=== PATIENT | female | born 1965 | race Caucasian/White ===

== ENCOUNTER → 2018-05-01 15:26 | Outpatient (CLI) | payer OTHER, SELFPAY ==
--- NOTE | 2018-05-01 15:42 | MRI_ITS ---
STUDY: MRI LEFT ANKLE WITHOUT CONTRAST REASON FOR EXAM: Plantar heel pain for 6 months. TECHNIQUE: Standardized fat and water weighted pulse sequences were obtained in all 3 orthogonal planes. COMPARISON: Radiographs 11/29/2016. FINDINGS: There is mild edema in the plantar heel pad. There is edema in the anterior subcutis adipose space of the distal lower leg. Normal posterior tibialis tendon. Normal flexor digitorum longus tendon. Normal flexor hallucis longus tendon. Normal peroneus longus and brevis tendons. Normal tibialis anterior tendon. Normal extensor hallucis longus tendon. Normal extensor digitorum longus tendons. Normal Achilles tendon and teno-osseous insertion. There is thickening of the central cord of the plantar fascia measuring 0.9 cm with interstitial edema (inversion recovery sagittal images 9-11) consistent with plantar fasciitis. There is mild reactive bone edema in the posterior tuberosity of the calcaneus at the origin of the plantar fascia (inversion recovery sagittal images 11, 12). There is a very small plantar calcaneal enthesophyte. Normal intrinsic muscles of the rearfoot. Normal distal tibiofibular syndesmotic ligamentous complex. Normal lateral ligamentous complex. Normal subtalar ligaments and sinus tarsi. Normal deltoid ligamentous complexes. Normal plantar calcaneonavicular (spring) ligament. There is mild interstitial edema in Lisfranc ligament (series 13 image 13), possibly representing a low-grade sprain. Normal tibiotalar articulation. Normal talar dome. Normal subtalar articulations. Normal talonavicular articulation. Normal calcaneocuboid articulation. Normal navicular-cuneiform articulations. There is an os trigonum. MRI/Lower Ext Joint Only (Routine) IMPRESSION: Plantar fasciitis with mild reactive bone edema in the posterior tuberosity of the calcaneus. Possible low-grade sprain of Lisfranc ligament. Electronically Signed: Reyes Sharp MD at 11:43 EST Tel , Service support ,
== END ==
PROVIDERS: Family Provider Family Medicine Geriatric Medicine; PCP Family Medicine Geriatric Medicine; Referring Provider Podiatrist; Visit Provider Podiatrist
DX: M72.2 Plantar fascial fibromatosis (principal); M84.375A Stress fracture, left foot, initial encounter for fracture
CPT/HCPCS: 73721

== ENCOUNTER → 2018-05-30 14:50 | Outpatient (CLI) | payer OTHER, SELFPAY ==
--- NOTE | 2018-05-30 14:52 | BI_ITS ---
MAMMOGRAPHY - BILATERAL SCREENING REASON FOR EXAM: Female, 52 years old. Routine annual screening examination. PERTINENT HISTORY: Non-contributory. TECHNIQUE: Digital bilateral breast jeny (3D mammographic acquisition) in the CC and MLO projections. 2-D mediolateral oblique (MLO) and craniocaudad (CC) views of both breasts were obtained. CAD: Full Field Digital Mammography with Computer Added Detection was performed. COMPARISON: Comparison is made with prior study dated September 17, 2016 and February 16, 2015. FINDINGS: Breast Composition: The breasts are almost entirely fatty. There are no dominant masses or suspicious calcifications. No other significant abnormalities are identified. There has been no significant change since the prior study. BI/SCREENING MAMM (CAD), BILAT IMPRESSION: Stable bilateral screening mammogram. Yearly follow-up mammogram recommended. (A) ASSESSMENT CATEGORY: BIRADS Category 1: Negative. A letter regarding these results will be sent to the patient by the facility within 30 days. Approximately 10% of breast cancers are not detected by mammography. A normal mammogram should not delay biopsy of a clinically suspicious abnormality. [id number] Electronically Signed: Al Heaton MD at 16:03 EST Tel [phone], Service support ,
--- OUTSIDE RECORDS SUMMARY | 2018-07-25 14:12 | XMS RPT_ITS ---
:1965 Author Organization [facility] Care Team Providers Name Role Michael Kwan Employee Attending Unavailable Ambreen Paulino Attending Unavailable Ambreen Paulino Referring Unavailable Pierre, Brandon Chi Primary Care Unavailable Ammon Gonsales Attending Unavailable Ammon Gonsales Referring Unavailable Pierre, Brandon Chi Primary Care Unavailable PROBLEMS PROBLEMS DATE TYPE CONDITION / CODE ATTENDING STATUS SOURCE 05/08/2018 Unknown M72.2 - Plantar Fascione, Active [place] fascial [facility] fibromatosis [facility] M72.2(ICD-10) Repository PROCEDURES PROCEDURES No Procedure Records FoundRESULTS RESULTS SCREENING MAMM (CAD), Observed: 05/30/2018 Status: F Source: [facility]EF BILAT 2:52 PM [facility] Imaging Services [address] [place] [address] SCREENING MAMM (CAD), BILAT MR#: [id number] Acct: [id number] Name: YENI BANEGAS Rep #: [id number] : 1965 F 52 From: Al Heaton MD PCP: Pierre VINCENT,Brandon Holcomb Status: REG CLI Study: SCREENING MAMM (CAD), BILAT Date of Exam: 05/30/18 Exam# [id number] Ordering Dr: Ammon Gonsales MD MAMMOGRAPHY - BILATERAL SCREENING REASON FOR EXAM: Female, 52 years old. Routine annual screening examination. PERTINENT HISTORY: Non-contributory. TECHNIQUE: Digital bilateral breast jeny (3D mammographic acquisition) in the CC and MLO projections. 2-D mediolateral oblique (MLO) and craniocaudad (CC) views of both breasts were obtained. CAD: Full Field Digital Mammography with Computer Added Detection was performed. COMPARISON: Comparison is made with prior study dated September 17, 2016 and February 16, 2015. FINDINGS: Breast Composition: The breasts are almost entirely fatty. There are no dominant masses or suspicious calcifications. No other significant abnormalities are identified. There has been no significant change since the prior study. BI/SCREENING MAMM (CAD), BILAT IMPRESSION: Stable bilateral screening mammogram. Yearly follow-up mammogram recommended. (A) ASSESSMENT CATEGORY: BIRADS Category 1: Negative. A letter regarding these results will be sent to the patient by the facility within 30 days. Approximately 10% of breast cancers are not detected by mammography. A normal mammogram should not delay biopsy of a clinically suspicious abnormality. [id number] Electronically Signed: Al Heaton MD at 16:03 EST Tel [phone], Service support , CC: Ammon Gonsales MD; Brandon Jay MD Commissioner Of Officials: Signed LOWER EXT JOINT ONLY Observed: 05/01/2018 Status: F Source: [place] (ROUTINE) 3:43 PM [facility] REPOSITORY Imaging Services [address] [place] [id number] Lower Ext Joint Only (Routine) MR#: [id number] Acct: [id number] Name: YENI BANEGAS Rep #: [id number] : 1965 F 52 From: Reyes Sharp MD PCP: Pierre VINCENT,[employer] Status: REG CLI Study: Lower Ext Joint Only (Routine) Date of Exam: 05/01/18 Exam# [id number] Ordering Dr: Ambreen Paulino DPM STUDY: MRI LEFT ANKLE WITHOUT CONTRAST REASON FOR EXAM: Plantar heel pain for 6 months. TECHNIQUE: Standardized fat and water weighted pulse sequences were obtained in all 3 orthogonal planes. COMPARISON: Radiographs 11/29/2016. FINDINGS: There is mild edema in the plantar heel pad. There is edema in the anterior subcutis adipose space of the distal lower leg. Normal posterior tibialis tendon. Normal flexor digitorum longus tendon. Normal flexor hallucis longus tendon. Normal peroneus longus and brevis tendons. Normal tibialis anterior tendon. Normal extensor hallucis longus tendon. Normal extensor digitorum longus tendons. Normal Achilles tendon and teno-osseous insertion. There is thickening of the central cord of the plantar fascia measuring 0.9 cm with interstitial edema (inversion recovery sagittal images 9-11) consistent with plantar fasciitis. There is mild reactive bone edema in the posterior tuberosity of the calcaneus at the origin of the plantar fascia (inversion recovery sagittal images 11, 12). There is a very small plantar calcaneal enthesophyte. Normal intrinsic muscles of the rearfoot. Normal distal tibiofibular syndesmotic ligamentous complex. Normal lateral ligamentous complex. Normal subtalar ligaments and sinus tarsi. Normal deltoid ligamentous complexes. Normal plantar calcaneonavicular (spring) ligament. There is mild interstitial edema in Lisfranc ligament (series 13 image 13), possibly representing a low-grade sprain. Normal tibiotalar articulation. Normal talar dome. Normal subtalar articulations. Normal talonavicular articulation. Normal calcaneocuboid articulation. Normal navicular-cuneiform articulations. There is an os trigonum. MRI/Lower Ext Joint Only (Routine) IMPRESSION: Plantar fasciitis with mild reactive bone edema in the posterior tuberosity of the calcaneus. Possible low-grade sprain of Lisfranc ligament. Electronically Signed: Reyes Sharp MD at 11:43 EST Tel , Service support , CC: Ambreen Paulino DPM; Brandon Jay MD Commissioner Of Officials: Signed CBC W/DIFF, AUTOMATED Collected: 09/24/2017 Status: F Source: JEF 7:42 AM [facility] REPOSITORY TYPE CODE TESTS RESULT OUT OF RANGE REFERENCE UNITS LAB L100.1000 4.4-11.0 K/mm3 Low WBC 4.1 LAB L100.1200 4.2-5.4 M/mm3 Low RBC 4.13 LAB L100.1300 12.0-15.0 g/dl Normal HGB 13.3 LAB L100.1400 37-47 % Normal HCT 40.4 LAB L100.1500 81-99 fL Normal MCV 97.8 LAB L100.1600 27.0-32.0 pg High MCH 32.2 LAB L100.1700 32-36 g/gl Normal MCHC 32.9 LAB L100.1810 11.6-14.6 % Normal RDW CV 11.8 LAB L100.1820 35.1-43.9 fl Normal RDW SD 40.9 LAB L100.1900 150-450 K/mm3 Normal PLT 169 LAB L100.2000 6.2-12.0 fl Normal MPV 10.9 LAB L100.2100 47-70 % Normal NEUT% 63.0 LAB L100.2200 19-41 % Normal LY% 25.8 LAB L100.2300 0-10 % Normal MONO% 9.6 LAB L100.2400 0-5 % Normal EO% 1.2 LAB L100.2500 0-1 % Normal BASO% 0.2 LAB L100.2550 0.0-0.9 % Normal IM GRAN % 0.200 Result Comment: IG% - Immature Granulocytes (promyelocytes, myelocytes and metamyelocytes) > 1% indicates that a LEFT SHIFT is Present. LAB L100.2620 2.0-7.7 X10 3/uL Normal Absolute Neut 2.6 LAB L100.2720 0.83-4.51 X10 3/ul Normal Absolute Lymph 1.05 Performed By: #### L100.0100 #### [facility] [address] [place], [address] COMPREHENSIVE METABOLIC Collected: 09/24/2017 Status: F Source: JEF HIDALGO 7:42 AM [facility] REPOSITORY TYPE CODE TESTS RESULT OUT OF RANGE REFERENCE UNITS LAB L501.0100 74-106 mg/dL Normal GLU 93 Result Comment: Please note revised GLUCOSE reference range effective 2017. LAB L501.1000 7-18 mg/dL Normal BUN 14 LAB L501.1100 0.55-1.02 mg/dL Normal CREAT,SERUM 0.95 Result Comment: The validity of the calculated GFR AND GFRAA in patients over 70 years has not been determined. Clinical correlation is essential. LAB L501.1110 >60 mL/min Normal EST GFR 66 Result Comment: Non- GFR Calc LAB L501.1115 >60 mL/min Normal EST GFR - AA 79 Result Comment: GFR Calc LAB L501.1300 10-20 RATIO Normal BUN/CRE 14.7 LAB L501.1500 6.4-8.2 g/dL T Normal PROT 7.0 LAB L501.1800 3.2-5.0 g/dL Normal ALB 3.7 LAB L501.1950 2.2-4.2 g/dL Normal GLOB 3.3 LAB L501.2000 0.9-2.4 RATIO Normal A/G 1.1 LAB L501.2200 8.5-10.1 mg/dL CA Normal 8.5 LAB L501.4100 15-37 U/L Normal AST 19 LAB L501.4305 45-117 U/L High ALK P 130 LAB L501.4405 13-56 U/L Normal ALT 22 Result Comment: Please note revised ALT reference range effective 2017. LAB L501.4600 0.20-1.00 mg/dL Normal T BILI 0.50 LAB L501.5300 136-145 mmol/L Normal NA 141 LAB L501.5600 3.5-5.1 mmol/L Normal K 3.9 LAB L501.5900 98-107 mmol/L High CL 108 LAB L501.6100 21.0-32.0 mmol/L Normal CO2 28.0 LAB L501.6200 5-15 Normal GAP 5 Performed By: #### L500.4050, L500.4100, L501.9520 #### [facility] [address] [place], [place], [id number] LIPID PROFILE Collected: 09/24/2017 Status: F Source: [place] 7:42 AM [facility] REPOSITORY TYPE CODE TESTS RESULT OUT OF RANGE REFERENCE UNITS LAB L501.4900 200 mg/dL Normal CHOL 160 Result Comment: <200 mg/dL Desirable 200-240 mg/dL Borderline >240 mg/dL High Risk LAB L501.5000 mg/dL Normal TRIG 160 Result Comment: The drugs N-Acetylcysteine and Metamizole may falsely depress this assay. Serum Triglycerides Reference Interval Normal <150 mg/dL Borderline high 150 - 199 mg/dL High 200 - 499 mg/dL Very High > or = 500 mg/dL LAB L501.6400 mg/dL Normal HDL 57 Result Comment: The drugs N-Acetylcysteine and Metamizole may falsely depress this assay. Reference Range HDL <40 mg/dL Low HDL Cholesterol HDL >or= 60 mg/dL High HDL Cholesterol LAB L501.6500 0-130 mg/dL Normal LDL 71 LAB L501.6600 5-40 mg/dL Normal VLDL 32 Performed By: #### L500.4050, L500.4100, L501.9520 #### [facility] [address] [place], [place], [id number] THYROID STIM HORMONE Collected: 09/24/2017 Status: F Source: [place] (TSH) 7:42 AM [facility] REPOSITORY TYPE CODE TESTS RESULT OUT OF RANGE REFERENCE UNITS LAB L501.9520 0.358-3.74 uIU/mL High TSH 4.66 Performed By: #### L500.4050, L500.4100, L501.9520 #### [facility] [address] [place], [address] ALLERGIES ALLERGIES DATE TYPE / NAME / CODE REACTION SEVERITY SOURCE CODE 04/29/2015 Drug hydrocodone hallucinations Unknown [facility] Allergy/41 bitartrate/T56917 Community 3981998(SN 1555(RXNORM) [facility]) Repository 04/29/2015 Drug acetaminophen/F00 hallucinations Unknown [place] Allergy/41 4136676(RXNORM) Community [id number]([facility]) Repository 04/25/2015 Drug Sulfa Hives Unknown [place] Allergy/41 (Sulfonamide Community 5483192( Antibiotics)/F001 Hospital [facility]) 479556(RXNORM) Repository ENCOUNTERS ENCOUNTERS ADMIT/DISCHARGE ACCOUNT ADMITTING ENCOUNTER LOCATION SOURCE NUMBER CLASS 05/30/2018 [id number] Ambulatory Jef [facility] [address] [facility] ing:OPBI Repository 05/01/2018 [id number] Ambulatory [place] [facility] ing:MRI Repository 09/24/2017 [id number] Ambulatory Jef Jef [address] [facility] ing:[facility] Repository PAYERS PAYERS ENCOUNTER GUARANTOR PAYER SUBSCRIBER SOURCE 05/30/2018 YENI Chris [id number] Primary YENI C CYGANDOB: [place] VENANCIO RUANO Insurance:[facility] [id number] Number: [facility] [id number]: (330) [id number] Repository [phone] () Date:3283-80-65DD [id number] [place] [id number]: 05/30/2018 Secondary NOT GIVENUNK Jef Insurance:SELF PAY [facility] Number: Effective Repository Date:2018-03-17 05/01/2018 YENI C [id number] Primary YENI C CYGANDOB: [place] VENANCIO RUANO Insurance:[facility] [id number] Number: [facility] [id number]: [phone] [id number] Repository [phone] () Date:9571-01-27MT [address] [address]WF: 05/01/2018 Secondary YENI C CYGANDOB: [place] Insurance:[facility] [id number] [facility] Number: Hospital [id number] Repository Date:2018-04-22 05/01/2018 Tertiary NOT GIVENUNK [place] Insurance:SELF PAY [facility] Number: Effective Repository Date:2018-04-22 09/24/2017 Yeni Perez [id number] Primary NOT GIVENUNK Jef Ruano Insurance:SELF PAY [facility] [id number]: [phone]) Number: Effective Repository [phone] () Date:2017-09-24
== END ==
PROVIDERS: Family Provider Family Medicine Geriatric Medicine; PCP Family Medicine Geriatric Medicine; Referring Provider Obstetrics & Gynecology; Visit Provider Obstetrics & Gynecology
DX: Z12.31 Encounter for screening mammogram for malignant neoplasm of breast (principal)
CPT/HCPCS: 77063; 77067

== ENCOUNTER → 2018-07-14 16:37 | Outpatient (CLI) | payer OTHER, SELFPAY ==
[2018-07-14 17:44] LABS: Absolute Lymphocyte Count 1.52 X10^3/ul (0.83-4.51); Basophil# 0.01 X10^3/uL; Basophil% 0.2 % (0-1); Eosinophil# 0.05 X10^3/uL; Hematocrit 40.5 % (37-47); Hemoglobin 13.7 g/dl (12.0-15.0); Lymphocyte # 1.52 X10^3/ul (4.0); Lymphocyte % 30.1 % (19-41); Mean Corp Hgb Conc 33.8 g/gl (32-36); Mean Corpuscular Hgb 32.5 pg (27.0-32.0); Mean Corpuscular Volume 96.2 fL (81-99); Mean Platelet Vol. 11.1 fl (6.2-12.0); Monocyte# 0.43 X10^3/uL; Monocyte% 8.5 % (0-10); Neutrophil # 3.03 X10^3/uL (2.7-7.7); Platelet Count 189 K/mm3 (150-450); RBC Distribution Width CV 11.6 % (11.6-14.6); RBC Distribution Width SD 39.6 fl (35.1-43.9); Red Blood Count 4.21 M/mm3 (4.2-5.4); White Blood Count 5.1 K/mm3 (4.4-11.0)
[2018-07-14 17:51] LABS: POSITIVE COUNT NO; POSITIVE DIFFERENTIAL NO; POSITIVE MORPHOLOGY NO
[2018-07-14 18:46] LABS: Anion Gap 12 (5-15); BUN 16 mg/dL (7-18); BUN/Creat Ratio 16.4 RATIO (10-20); Calcium,Total 9.1 mg/dL (8.5-10.1); Chloride 105 mmol/L (98-107); Creatinine, Serum 0.97 mg/dL (0.55-1.02); EST Glomerular Filtration Rate 64 mL/min (>60); Est Glom Filt Rate - Afr Amer 77 mL/min (>60); Glucose 101 mg/dL (74-106); Potassium 3.9 mmol/L (3.5-5.1); Sodium Level 142 mmol/L (136-145)
== END ==
PROVIDERS: Family Provider Family Medicine Geriatric Medicine; PCP Family Medicine Geriatric Medicine; Visit Provider Family Medicine Geriatric Medicine
DX: Z01.810 Encounter for preprocedural cardiovascular examination (principal)
CPT/HCPCS: 36415; 80048; 85025; 85610

== ENCOUNTER 2018-07-25 13:35 | Day surgery (SDC) | payer OTHER, SELFPAY ==
[2018-07-25] VITALS (10 sets, daily range): BP systolic 65–155; BP diastolic 40–88; PULSE 48–69; RESP 16–18; TEMP 36.1–37; O2SAT 93–100; BMI 45.8
[2018-07-25 13:59] LABS: Internal QC Validated? YES +Cl - CLEAR BKGD; Pregnancy, Urine Negative Negative
[2018-07-25] MEDS: Bupivacaine Mpf 0.5% 30 ML VIAL (16:11)
--- NOTE | 2018-07-25 16:57 | DCINST_ITS ---
Discharge Diet: No Restrictions Discharge Activity: Use Crutches Ice area for (Minutes): 15 - apply to back of knee Weight Bearing Status: No weight bearing Keep extremity elevated above heart level: Left Leg Call your doctor if your incision/area has: Continuous Slow Oozing, Sudden Increased Bleeding, Increased Pain/ Swelling, Increased Redness, Foul Smelling Discharge, Swelling at the incision site Call your doctor if you observe: Fever of 101 or Higher, Calf discomfort, Uncontrolled pain Cleanse incision/area with: Keep Dressing Clean & Dry Additional Instructions: hang heel over pillows while in bed to keep pressure off of back of heel / splint Allergies/Adverse Reactions: Allergies hydrocodone bitartrate [From Vicodin] Allergy (Verified 04/29/15 15:59) hallucinations Sulfa (Sulfonamide Antibiotics) Allergy (Verified 04/25/15 14:24) Hives Medications to take at Discharge Aspirin [Aspirin, Baby] 81 mg PO DAILY@0800 04/29/15 Atorvastatin Calcium [Lipitor] 10 mg PO DAILY 04/29/15 Ergocalciferol [Vitamin D] 50,000 unit PO QMONTH 04/29/15 Furosemide [Lasix] 20 mg PO PRN PRN 04/29/15 Levothyroxine [Synthroid] 75 mcg PO DAILY 07/18/18 Metoprolol Tartrate [Lopressor (Beta Benigno)] 50 mg PO DAILY 07/18/18 Naltrexone HCl/Bupropion HCl [Contrave ER 8-90 mg Tablet] 2 each PO DAILY 0 07/18/18 Sumatriptan Succinate [Imitrex] 100 mg PO .X1 PRN PRN 07/18/18 Primary Care Physician: Brandon Jay Chi, MD [Primary Care Provider] - Test Results: Test results from this visit will be discussed in further detail at your follow- up appointment, if applicable. Please Follow Up With: Ambreen Paulino DPM When: [facility] week [facility]. call sooner if questions [phone] Proposed Discharge Date: 07/25/18
--- NOTE | 2018-07-25 16:59 | OP.PN_ITS ---
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 Histologist Technologist: Yahir Byrd PGY2 Primary Surgeon/Physician: Ambreen Paulino DPM capsule inspector: none Pre-Operative Diagnosis: left plantar fasciitis. left gastrocnemius equinus Post-Operative Diagnosis: left plantar fasciitis. left gastrocnemius equinus Surgery/Procedure Performed:: open left plantar fasciotomy. open left amairani gastrocnemius recession Description of Surgical Findings:: Hemostasis controlled, no tourniquet utilized Materials: 3-0 Vicryl, 3-0 Prolene Complications: None The patient tolerated the procedure and anesthesia well. She was transported to the PACU vital signs stable vascular status intact to the left lower extremity. She will be discharged home upon continued stability. All of her postoperative orders were entered electronically. Estimated Blood Loss: < 20mL Specimen's removed: none Type of Anesthesia:: Local - Preoperative: 15 cc of 1: 1 mixture of 0.5% Marcaine plain and 1% lidocaine plain administered in typical left ankle block fashion Intra-Op: 15 cc of 1% lidocaine with epinephrine administered locally at the gastrocnemius recession site and plantar fascial release site - Admit VTE Documentation VTE Present on Admission: No VTE Mechan Device Prophylaxis: SCD's VTE Pharm Prophylaxis ordered?: No Reason prophylaxis not ordered:: Treatment Not Indicated
--- NOTE | 2018-07-25 17:25 | OP.PCM_ITS ---
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 Manager College: Yahir Byrd PGY2 Pre-Operative Diagnosis: left plantar fasciitis. left gastrocnemius equinus Post-Operative Diagnosis: left plantar fasciitis. left gastrocnemius equinus Surgery/Procedure Performed:: open left plantar fasciotomy. open left amairani gastrocnemius recession Description of Surgical Findings:: Hemostasis: no tourniquet utilized, anatomic dissection, lidocaine with epinephrine utilized Materials: 3-0 Vicryl, 3-0 Prolene Complications: None green marketing analyst: none Type of Anesthesia:: Local - Preoperative: 15 cc of 1: 1 mixture of 0.5% Marcaine plain and 1% lidocaine plain administered in typical left ankle block fashion Intra-Op: 15 cc of 1% lidocaine with epinephrine administered locally at the gastrocnemius recession site and plantar fascial release site Specimen's removed: none Estimated Blood Loss (mL): < 20mL Description of Procedure: This 52-year-old pleasant female with significant past medical history of thyroid dysfunction, depression, and obesity continues to have left heel pain consistent with plantar fasciitis and reactive bone edema. She has been treated in the clinical setting including orthotics, therapy, and advanced therapies, prolonged immobilization, and stretching shoe gear change. She has post static dyskinesia and continued pain palpation to the medial tubercle of the calcaneal tuberosity of the left lower extremity. She also has decreased ankle joint dorsiflexion available with the knee extended on the left lower extremity. Her pain is affecting her daily activities. Her preoperative history and physical, clearance, and laboratory diagnostic data was reviewed without gross abnormalities. She was cleared with minimal risk for the surgical procedure. The preoperative indication, planned procedure, possible benefits, risks, complications, and anticipated healing time and management were discussed in detail to patient. She understands and elects to proceed with surgery at this time. No guarantees were made. She understands risks and complications may include but are not limited to the following: continued pain, swelling, scarring, recurrence, under or overcorrection, loss of sensation, need for further surgery, loss of limb, function, life. I answered all of her questions. The surgical consent and limb were signed. Procedure in detail: The patient was transported to the operating room via cart and placed on the operating table in supine position. Final verification of the patient, surgery, limb designation was performed via the timeout procedure. A well-padded pneumatic left ankle tourniquet was applied, however this was not utilized. The preoperative injection was administered by the podiatry team. MAC anesthesia was initiated by the anesthesia team. The left lower extremity was prepped and draped in the usual aseptic manner. Surgery began in the following manner: First, attention was directed to the posterior aspect of the left leg in which lidocaine with epinephrine was administered at the anticipated resection site. A 15 blade was used to make a 2-1/2 cm linear incision to the posterior slightly medial aspect of the limb a couple of fingerbreadths distal to the medial gastrocnemius head. Blunt dissection was performed down to the posterior muscle sheath and a small rent was made to expose the gastrocnemius tendon. Care was taken to identify, protect, and retract all neurovascular structures at this point and throughout the remainder of the surgery. The gastrocnemius tendon sheath was isolated with a hemostat and this was carefully resected with a 15 blade. It is noted improved ankle dorsiflexion within the extended was to 10 degrees. This was irrigated with saline and deep closure was achieved with Vicryl. The skin was reapproximated with simple suture technique with 3-0 Prolene. Attention was next directed approximately 1.5 cm distal to the plantar weightbearing surface of the medial heel. A horizontal 1.5 cm linear incision was made through the skin remaining parallel to the resting skin tension lines. Next, blunt dissection was performed through the adipose tissue and the plantar fascial band was directly visualized. A 15 blade was utilized to release the plantar fascia band including the medial aspect and the entire central band. The windlass mechanism was re-created and decreased tension was visualized and palpated. Additional tenotomy scissor was used to ensure the medial slips extending into the abductor hallucis muscle belly sheath were thoroughly released as well. This plantar fascial band did appear thick and there were no other abnormal findings. Hemostasis was controlled. Brisk capillary refill time was noted to all digits of the surgical limb. The postoperative injection was administered at this time in a local infiltrative manner for additional pain control. One Vicryl stitch was applied for deep closure. Next, the skin was reapproximated utilizing 3-0 Prolene with horizontal mattress and simple suture technique. A postoperative dressing consisting of Adaptic soaked in Betadine, gauze, Kerlix and webril was applied to left foot. A well-padded posterior mold with the foot in a neutral position was next applied. After procedure: The patient tolerated the procedure and anesthesia well. She was transported to the PACU with vital signs stable and vascular status intact to left lower extremity. She was advised to ice and elevate for pain and inflammation management. She was advised to remain nonweightbearing to left lower extremity with assistive devices; she crutches at home already. She is advised to keep her dressing and splint clean, dry, and intact until [facility]-up [facility] next week with Dr. Paulino. She was advised on safe and proper use of postoperative oral pain medication; a prescription was already provided. All of her postoperative orders were entered electronically. She will be di scharged home today. Ambreen Paulino DPM, [facility]
[2018-07-25] MEDS: oxyCODONE 5 MG Tablet PO (18:30)
== END 2018-07-25 19:57 | disposition home or self-care (01) ==
LOC: SDC 13:38 → AC 13:40
PROVIDERS: Family Provider Family Medicine Geriatric Medicine; PCP Family Medicine Geriatric Medicine; Referring Provider Podiatrist; Visit Provider Podiatrist
PROC: (CPT 27687; 2018-07-25 15:00)
DX: M72.2 Plantar fascial fibromatosis (principal); E03.9 Hypothyroidism, unspecified; I10 Essential (primary) hypertension
CPT/HCPCS: 01474; 27687; 28008; 81025; J7120; J2405

== ENCOUNTER 2018-10-08 16:30 | Outpatient (RCR) | payer OTHER, SELFPAY ==
[2018-07-25 14:00] VITALS: BMI 45.8
[2018-09-04 08:12] VITALS: BMI 45.8
--- NOTE | 2018-09-17 14:06 | HP.PTEVAL_ITS ---
Patient's Visit Information MARIA L BANEGAS is a 53 year old F referred to Physical Therapy by Ambreen Paulino DPM with a diagnosis of Left open plantar fasciotomy and gastroc recession. Date of Evaluation: 09/09/18 Physical Therapist: Prakash Matt DPT - Visit Plan Frequency: 1-2x /Week Duration: 4-6 Weeks Plan: Start with intrinsic strengthening, ankle strengthening, stretching. Add in scar mobilization at both insicisions. Progress gait mechanics and pr ioprioception exercises. - Subjective Findings: Pt. is here today for her initial evaluation after having a Left open plantar fasciotomy and gastroc recession. DOS 07/25/18. Pt. arrives today with CAM boot, but is allowed to slowly wean out of her brace. Pt. reports no pain with walking in CAM walker. Pt. is back to work without issues. Pt. denies N/T in either LE. Pt. reports doing come ankle exercises at home, but otherwise no formal exercises. Pt. pleased with not having much pain any more. Pt. is hopeful to increase her tolerance to walking out of her boot in order to get back to all work and recreational activities without limitations. - Objective POSTURE: Pt. has normal posture in stance. She has slight pes planus bilate rally. Pt. has equal wt. shifting. Pt. reports no pain with standing out of CAM boot. PALPATION: Pt. has two well healed incisions, one at plantar fascia and one at her medial gastroc region. Pt. has increased scar tissue at both regions. Tenderness noted at both areas as well. NEURO: Pt. has normal sensation throughout bilateral LEs. Pt. has 2+ achilles and patellar DTR. ROM: R ankle- 45deg of PF, 18deg DF, 20deg of both INV/EVR. L ankle PF 38deg, DF 12deg., INV 16deg, EVR 18deg. Pt. has normal ROM of bilateral knees. MMT: R ankle 5/5 throughout. L ankle 4+/5 throughout, no pain with testing. GAIT: Pt. ambulates without AD, but had early heel off with LLE, decreased R step length. STAIRS: step to pattern noted. with loading RLE and 1 HR. [place] antalgic pattern noted. - Goals Goal 1:: Pt. to be I with HEP. Goal Time Frame: 4-6 Weeks Goal 2:: Pt. to have incerased L ankle DF to 16deg allowing for normalized gait pattern Goal Time Frame: 4-6 Weeks Goal 3:: Pt. to have increased L ankle strength to 5/5 throughout. Goal Time Frame: 4-6 Weeks Goal 4:: Pt. to ambulate without pain with normalized gait pattern without use of CAM boot. Goal Time Frame: 4-6 Weeks Goal 5:: Pt. to negotiate steps with reciprocal pattern without increase in symptoms. Goal Time Frame: 4-6 Weeks - Rehabilitation Potential Physical Therapy Diagnosis: Left open plantar fasciotomy and gastroc recession with subsequent hypombility, and difficulty walking. Rehabilitation Potential: Excellent - Anticipated Interventions Patient/Client Instruction: Educate patient on: Condition, Plan of Care, Risk Factors, Benefits of Fitness Program For the Purpose of:: To improve safety, To improve health and function, To foster healthy habits, To improve decision making, To facilitate caregiver knowledge, To improve self management, To prevent re-injury, To improve ability to perform tasks related to life management, To improve tolerance to ADL's Therapeutic Exercise to Include: Strength training, Power training, Endurance training, Balance training, Coordination, Postural training, Flexibilty training, Gait and locomotor training, Passive ROM, Active ROM For the Purpose of:: To decrease pain, To decrease swelling/inflammation, To increase ROM, To improve nutrient delivery to tissue, To increase oxygenation perfusion, To improve muscle performance and motor function, To improve ability to perform ADL's, To increase tolerance to activity/condition/position, To improve gait and locomotor functions, To improve health of tissue, To decrease soft tissue restriction Manual Therapy Techniques to Include: Petrissage, Scar massage, Mobilization, Passive ROM For the Purpose of:: To decrease pain, To decrease swelling/inflammation, To increase ROM, To improve nutrient delivery to tissue, To increase oxygenation perfusion, To improve muscle performance and motor function Thank you for the opportunity to evaluate your patient. For Medicare and Medicare HMO plans, please review the plan of care and approve it. It will need to be FAXED BACK to us at [phone] for Medicare purposes. For Medicare only, by signing this I certify the plan of care. Please let me know if there are questions or concerns regarding this plan of care. Physician Signature: Date:
--- NOTE | 2019-03-03 10:56 | HP.PT.NRP ---
HP - Discharge Summary (1) - Patient Information MARIA L BANEGAS was seen in my office for initial evaluation on 09/09/18. The following Plan of Care was established for this patient: Initial Frequency: 1-2x /Week Initial Duration: 4-6 Weeks - Anticipated Interventions Patient/Client Instruction: Educate patient on: Condition, Plan of Care, Risk Factors, Benefits of Fitness Program For the Purpose of:: To improve safety, To improve health and function, To foster healthy habits, To improve decision making, To facilitate caregiver knowledge, To improve self management, To prevent re-injury, To improve ability to perform tasks related to life management, To improve tolerance to ADL's Therapeutic Exercise to Include: Strength training, Power training, Endurance training, Balance training, Coordination, Postural training, Flexibilty training, Gait and locomotor training, Passive ROM, Active ROM For the Purpose of:: To decrease pain, To decrease swelling/inflammation, To increase ROM, To improve nutrient delivery to tissue, To increase oxygenation perfusion, To improve muscle performance and motor function, To improve ability to perform ADL's, To increase tolerance to activity/condition/position, To improve gait and locomotor functions, To improve health of tissue, To decrease soft tissue restriction Manual Therapy Techniques to Include: Petrissage, Scar massage, Mobilization, Passive ROM For the Purpose of:: To decrease pain, To decrease swelling/inflammation, To increase ROM, To improve nutrient delivery to tissue, To increase oxygenation perfusion, To improve muscle performance and motor function This patient was last seen in our office 10/08/18. Pertinent comments regarding their Physical therapy will appear below: Pt. was seen for her gastroc resection. Pt. has not been seen for several months and will be DC from PT at this point in time. At this point I will be discontinuing this patient from physical therapy. I would be happy to see this patient again in the future if found appropriate by the physician. Thank you! Prakash Matt, LULYT
== END 2018-10-08 19:00 | disposition home or self-care (01) ==
LOC: PT 16:30
PROVIDERS: Family Provider Family Medicine Geriatric Medicine; PCP Family Medicine Geriatric Medicine; Referring Provider Podiatrist; Visit Provider Podiatrist
DX: Z98.890 Other specified postprocedural states (principal)
CPT/HCPCS: 97110; 97161

== ENCOUNTER → 2018-11-11 14:31 | Outpatient (CLI) | payer OTHER, SELFPAY ==
[2018-09-04 08:12] VITALS: BMI 45.8
--- NOTE | 2018-11-11 14:33 | RAD_ITS ---
STUDY: X-RAY - LUMBAR SPINE REASON FOR EXAM: Female, 53 years old. Back pain TECHNIQUE: 3 view(s) of the lumbar spine were obtained. COMPARISON: None FINDINGS: There is no evidence of fracture or dislocation in the lumbar spine. The vertebral body heights are well-maintained. There are moderate degenerative changes at L5/S1 with disc space narrowing, facet hypertrophy and osteophytosis. RAD/Lumbar Spine 2 or 3 Views IMPRESSION: No fracture or dislocation in the lumbar spine. Moderate degenerative changes at L5/S1. Electronically Signed: Romero Aparicio, at 15:34 EDT Tel , Service support ,
== END ==
PROVIDERS: Family Provider Family Medicine Geriatric Medicine; PCP Family Medicine Geriatric Medicine; Referring Provider Family Medicine Geriatric Medicine; Visit Provider Family Medicine Geriatric Medicine
DX: M54.5 Low back pain (principal)
CPT/HCPCS: 72100

== ENCOUNTER → 2019-04-07 16:15 | Outpatient (CLI) | payer OTHER, SELFPAY ==
[2018-09-04 08:12] VITALS: BMI 45.8
[2019-04-07 17:27] LABS: Absolute Lymphocyte Count 1.94 X10^3/uL (0.83-4.51); Basophil# 0.03 X10^3/uL; Basophil% 0.5 % (0-1); Eosinophil# 0.05 X10^3/uL; Eosinophils% 0.8 % (0-5); Hematocrit 41.8 % (37-47); Hemoglobin 13.5 g/dL (12.0-15.0); Lymphocyte # 1.94 X10^3/ul (4.0); Lymphocyte % 29.6 % (19-41); Mean Corp Hgb Conc 32.3 g/dL (32-36); Mean Corpuscular Hgb 31.5 pg (27.0-32.0); Mean Corpuscular Volume 97.7 fL (81-99); Mean Platelet Vol. 11.1 fl (6.2-12.0); Monocyte# 0.48 X10^3/uL; Monocyte% 7.3 % (0-10); NRBC Flagged by Analyzer 0 % (0-5); Neutrophil # 4.04 X10^3/uL (2.7-7.7); Neutrophil % 61.5 % (47-70); Platelet Count 195 K/mm3 (150-450); RBC Distribution Width CV 11.6 % (11.6-14.6); RBC Distribution Width SD 41.4 fl (35.1-43.9); Red Blood Count 4.28 M/mm3 (4.2-5.4); White Blood Count 6.6 K/mm3 (4.4-11.0)
[2019-04-07 17:54] LABS: Anion Gap 8 (5-15); BUN 15 mg/dL (7-18); BUN/Creat Ratio 17.1 RATIO (10-20); CRP < 2.90 mg/L (0.0-3.0); Calcium,Total 9.4 mg/dL (8.5-10.1); Chloride 105 mmol/L (98-107); Creatinine, Serum 0.88 mg/dL (0.55-1.02); EST Glomerular Filtration Rate 72 mL/min (>60); Est Glom Filt Rate - Afr Amer 87 mL/min (>60); Glucose 98 mg/dL (74-106); Potassium 4.1 mmol/L (3.5-5.1); Sodium Level 142 mmol/L (136-145)
[2019-04-07 18:33] LABS: Erythrocyte Sedimentation Rate 13 mm/hr (0-30)
== END ==
PROVIDERS: Family Provider Family Medicine Geriatric Medicine; PCP Family Medicine Geriatric Medicine; Visit Provider Family Medicine Geriatric Medicine
DX: M79.609 Pain in unspecified limb (principal)
CPT/HCPCS: 36415; 80048; 85025; 85652; 86140

== ENCOUNTER → 2019-04-07 16:23 | Outpatient (CLI) | payer OTHER, SELFPAY ==
[2018-09-04 08:12] VITALS: BMI 45.8
--- NOTE | 2019-04-07 16:27 | VDUE_ITS ---
Reason For Study: swelling Right Proximal Left Proximal Right jugular vein is spontaneous, widely Left jugular vein is spontaneous, widely patent, phasic, with no intraluminal patent, phasic, with no intraluminal echogenicity noted. echogenicity noted. Right subclavian vein is spontaneous, widely Left subclavian vein is spontaneous, widely patent, phasic, with no intraluminal patent, phasic, with no intraluminal echogenicity noted. echogenicity noted. Right Lower Arm Left Arm Right radial vein is compressible. Left axillary vein is spontaneous, patent, Right ulnar vein is compressible. phasic, competent, compressible and Right Arm demonstrates augmentation. Right axillary vein is spontaneous, patent, Left brachial vein is compressible. phasic, competent, compressible and Left cephalic vein is compressible. demonstrates augmentation. Left basilic vein is compressible. Right brachial vein is compressible. Left Lower Arm Right cephalic vein is compressible. Left radial vein is compressible. Right basilic vein is compressible. Left ulnar vein is compressible. Prelim to Dr. Jay. Interpretation Summary Deep veins of the upper extremities are bilaterally patent and compressible segmentally. There is no evidence of deep vein thrombosis on either side. The superficial veins, the basilic and cephalic veins, are patent and compressible bilaterally. There is no evidence of upper extremity superficial thrombophlebitis on either side involving the veins imaged. Ordering Physician: Brandon Jay Performed By: Marlon Jacobsen RVT ?
--- NOTE | 2019-04-07 16:51 | RAD_ITS ---
HISTORY: Pain in right upper humerus for 6 weeks. Swelling started one and half weeks ago. 2 views of the right humerus. Findings: Bony alignment is normal. Cortices are intact. Joint spaces are preserved. No soft tissue masses are perceived. RAD/Humerus min 2 Views IMPRESSION: Normal. at 0600 Reported and signed by: Santiago Pinto MD Electronically Signed: Santiago Pinto MD at 5:59 EDT Tel , Service support ,
--- NOTE | 2019-04-07 16:53 | RAD_ITS ---
HISTORY: PAIN IN RIGHT UPPER HUMERUS X 6 WEEKS, SWELLING STARTED ABOUT 1 1/2 WEEKS AGO. NO KNOWN INJURY. Exam: Right Shoulder COMPARISON: None FINDINGS: # of images incl. paperwork: 4 XR Shoulder for Views: The humeral head is well-positioned within the glenoid fossa. No fracture or subluxation. The acromioclavicular joint is normal. The adjacent chest is unremarkable. RAD/Shoulder min 2 Views IMPRESSION: Normal right shoulder. at 0559 Reported and signed by: Santiago Pinto MD Electronically Signed: Santiago Pinto MD at 5:58 EDT Tel , Service support ,
== END ==
PROVIDERS: Family Provider Family Medicine Geriatric Medicine; PCP Family Medicine Geriatric Medicine; Referring Provider Family Medicine Geriatric Medicine; Visit Provider Family Medicine Geriatric Medicine
DX: M79.609 Pain in unspecified limb (principal); R60.0 Localized edema
CPT/HCPCS: 73030; 73060; 93970

== ENCOUNTER → 2019-08-24 | Outpatient (CLI) | payer OTHER, SELFPAY ==
[2019-08-23 08:31] VITALS: BMI 45.8
== END | disposition home or self-care (01) ==
LOC: PSN 16:06
PROVIDERS: PCP Family Medicine Geriatric Medicine; Referring Provider Family Medicine Geriatric Medicine; Visit Provider Family Medicine Geriatric Medicine
DX: R50.9 Fever, unspecified (principal)
CPT/HCPCS: 87633

== ENCOUNTER → 2019-12-31 | Outpatient (CLI) | payer OTHER, SELFPAY ==
[2019-08-23 08:31] VITALS: BMI 45.8
[2019-12-31 12:26] LABS: Absolute Neutrophil Count 2.5 X10^3/uL (2.0-7.7); Basophil# 0.02 X10^3/uL; Basophil% 0.4 % (0-1); Eosinophil# 0.04 X10^3/uL; Eosinophils% 0.9 % (0-5); Hematocrit 41.5 % (37-47); Hemoglobin 13.2 g/dL (12.0-15.0); Lymphocyte % 33.2 % (19-41); Mean Corp Hgb Conc 31.8 g/dL (32-36); Mean Corpuscular Hgb 32.5 pg (27.0-32.0); Mean Corpuscular Volume 102.2 fL (81-99); Mean Platelet Vol. 11.7 fl (6.2-12.0); Monocyte# 0.42 X10^3/uL; Monocyte% 9.3 % (0-10); NRBC Flagged by Analyzer 0 % (0-5); Neutrophil # 2.53 X10^3/uL (2.7-7.7); Platelet Count 198 K/mm3 (150-450); RBC Distribution Width CV 11.6 % (11.6-14.6); RBC Distribution Width SD 43.3 fl (35.1-43.9); Red Blood Count 4.06 M/mm3 (4.2-5.4); White Blood Count 4.5 K/mm3 (4.4-11.0)
[2019-12-31 13:06] LABS: Vitamin D,25 Hydroxy 33.9 ng/mL
[2019-12-31 13:07] LABS: ALB/GLOB Ratio 1.1 RATIO (0.9-2.4); AST(SGOT) 21 U/L (15-37); Alanine Aminotransfer ALT/SGPT 27 U/L (13-56); Albumin, Serum 3.7 g/dL (3.2-5.0); Alkaline Phosphatase 133 U/L (45-117); Anion Gap 8 (5-15); BUN 14 mg/dL (7-18); BUN/Creat Ratio 15.5 RATIO (10-20); Calcium,Total 9.2 mg/dL (8.5-10.1); Chloride 107 mmol/L (98-107); EST Glomerular Filtration Rate 69 mL/min (>60); Est Glom Filt Rate - Afr Amer 84 mL/min (>60); Globulin 3.4 g/dL (2.2-4.2); Glucose 85 mg/dL (74-106); Potassium 3.5 mmol/L (3.5-5.1); Protein, Total 7.1 g/dL (6.4-8.2); Sodium Level 142 mmol/L (136-145); Thyroid Stim Hormone (TSH) 1.95 uIU/mL (0.358-3.74)
== END | disposition home or self-care (01) ==
LOC: POLAB3 09:15
PROVIDERS: PCP Family Medicine Geriatric Medicine; Visit Provider Family Medicine Geriatric Medicine
DX: I10 Essential (primary) hypertension (principal); E55.9 Vitamin D deficiency, unspecified
CPT/HCPCS: 36415; 80053; 82306; 84443; 85025

== ENCOUNTER → 2020-07-28 13:55 | Outpatient (CLI) | payer OTHER, SELFPAY ==
[2019-08-23 08:31] VITALS: BMI 45.8
--- NOTE | 2020-07-28 13:55 | EKG12_ITS ---
Test Reason : PRE SURGERY Blood Pressure : / mmHG Vent. Rate : 056 BPM Atrial Rate : 056 BPM P-R Int : 180 ms QRS Dur : 094 ms QT Int : 416 ms P-R-T Axes : 023 025 042 degrees QTc Int : 401 ms Sinus bradycardia Otherwise normal ECG Confirmed by MEHDI VINCENT, CHEVY ([id number]), graphics editor MAURICIO JAEGER ([id number]) on 08/01/2020 10:44:10 AM Referred By: Hamlet Soliman Confirmed By:JEOVANNY HARDING MD
== END ==
PROVIDERS: PCP Family Medicine Geriatric Medicine; Referring Provider Surgery; Visit Provider Surgery
DX: Z01.812 Encounter for preprocedural laboratory examination (principal)
CPT/HCPCS: 87635; 93005; C9803; U0003

== ENCOUNTER 2020-08-06 18:57 | Emergency (ER) | payer OTHER, SELFPAY ==
[2019-08-23 08:31] VITALS: BMI 45.8
[2020-08-06 18:57] VITALS: BP 150/89; PULSE 60; RESP 16; TEMP 36.1; O2SAT 100; BMI 43.5
--- NOTE | 2020-08-06 19:21 | ED.DCSUM_ITS ---
History of Present Illness Chief Complaint: Nausea/Vomiting Informant: Patient Narrative: 54-year-old female presenting with nausea/vomiting, intermittent shaking, and chills. She states she does not have a cough or shortness of breath. She is not a fever. She denies change in taste or smell. This is a new problem for her. Patient had vein surgery at outside hospital on her right lower extremity on . She states she was put on Xarelto to make sure she does not get a DVT. Patient also states that she has been on Percocet for pain. She is allergic to hydrocodone. She states he had Percocet before and never had a reaction to it. She tried Zofran at home and it did not help. She states she gets intermittent abdominal cramping in the lower abdomen. She states she has been slightly constipated and took a Dulcolax earlier. She was able to make a small stool. She states she had a Covid swab 3 days ago before the procedure and it was negative. Patient states that her leg feels fine. She is recovering well from this aspect. Past Medical History - Allergies and Home Meds Allergies/Adverse Reactions: Allergies hydrocodone bitartrate [From Vicodin] Allergy (Verified 08/06/20 19:03) hallucinations Sulfa (Sulfonamide Antibiotics) Allergy (Verified 08/06/20 19:03) Hives Primary Care Physician: Brandon Jay Chi, MD [Primary Care Provider] - Prior records reviewed: Yes Past Medical History: - - Patient denies significant medical history Surgical History: tonsillectomy Lives: Spouse/ Significant Other Smoking Status: Never smoker Alcohol: None Drugs: None - Family History Maternal Family History: Family History (Last Reviewed 08/23/19 @ 08:31 by Bonnie Howard) Other Dementia Hypertension Family History: Reports: Hypertension Paternal Family History: Family History (Last Reviewed 08/23/19 @ 08:31 by Bonnie Howard) Other Dementia Hypertension Family History: Reports: High Cholesterol, Hypertension Review of Systems General: Reports: Chills, - - Shaking.. Denies: Fever, Malaise Eyes: Denies: Visual changes - bilaterally, Diplopia ENT: Denies: Rhinorrhea, Sore throat Cardiovascular: Denies: Chest pain, Palpitations Respiratory: Denies: Dyspnea, Cough, Dyspnea on exertion Gastrointestinal: Reports: Abdominal pain, Nausea, Constipation. Denies: Vomiting, Diarrhea, Melena, Hematochezia Genitourinary: Denies: Dysuria, Hematuria Musculoskeletal: Denies: Myalgias, Arthralgias Skin: Denies: Rash, Abscess Neurological: Denies: Parasthesia, Numbness Psych: Denies: Depression, Anxiety Hematologic: Denies: Easy bruising, Easy bleeding Physical Exam Vital Signs/Narrative: Vital Signs Temp Pulse Resp BP Pulse Ox 08/06/20 18:57 96.9 F L 60 16 150/89 H 100 Inital Vital Signs reviewed: Yes General: Well nourished, No Acute Distress Head: Normocephalic, Atraumatic Eyes: Perrl, EOMI ENT: Moist mucous membranes, No rhinorrhea Cardiovascular: Regular rate, Regular rhythm Abdomen: Soft, Nontender, Nondistended Extremities: Nontender, No edema Skin: Normal color, No rash Neurological: Alert, Oriented x3, Cranial nerves II-XII grossly intact Psychological: Normal affect, Normal Mood Diagnostic/Tx/Re-eval Laboratory Data 08/06/20 08/06/20 08/06/20 20:05 20:05 20:05 WBC 10.1 RBC 3.99 L Hgb 12.8 Hct 39.4 MCV 98.7 MCH 32.1 H MCHC 32.5 RDW Std Deviation 43.7 RDW Coeff of Amanda 12.0 Plt Count 165 MPV 10.3 Immature Gran % (Auto) 0.400 Neut % (Auto) 77.8 H Lymph % (Auto) 14.5 L [place] % (Auto) 6.7 Eos % (Auto) 0.4 Baso % (Auto) 0.2 Absolute Neuts (auto) 7.9 H Absolute Lymphs (auto) 1.46 Nucleated RBC % 0 Sodium 143 Potassium 3.2 L Chloride 109 H Carbon Dioxide 28.0 Anion Gap 6 BUN 13 Creatinine 0.91 Estim Creat Clear Calc 66.16 Est GFR (MDRD) Af Amer 82 Est GFR (MDRD) Non-Af 68 BUN/Creatinine Ratio 14.3 Glucose 101 Calcium 9.3 Total Bilirubin 0.70 AST 20 ALT 19 Alkaline Phosphatase 155 H Total Protein 7.1 Albumin 4.0 Globulin 3.1 Albumin/Globulin Ratio 1.3 Urine Color Yellow Urine Clarity Clear Urine pH 8.0 Ur Specific [place] 1.015 Urine Protein Negative Urine Glucose (UA) Normal Urine Ketones Negative Urine Occult Blood Negative Urine Nitrite Negative Urine Bilirubin Negative Urine Urobilinogen Normal Ur Leukocyte Esterase Negative Urine RBC 0 SEEN Urine WBC 0 SEEN Ur Squamous Epith Cells 0-5 SEEN Urine Bacteria 0 SEEN Urine Mucus 0 SEEN - Medical Decision Making 54-year-old female presenting with resolved abdominal pain which she described as crampy in the lower abdomen. She is also had some constipation. She states currently she is experiencing a lot of nausea. She has shaking and chills. Patient has no respiratory symptoms. Patient had a rapid Covid swab which was negative. Patient had already taken Zofran prior to arrival and she was given IV Phenergan which did dull the nausea however did not resolve it. She was then given Reglan and Benadryl with good relief of her nausea. Her lab work was all normal and she has no reproducible pain so I do not believe she needs a CT of the abdomen pelvis. Patient was amenable to this plan. She will be discharged home with a prescription for Phenergan. She is given return precautions. Impression: 1. Resolved abdominal pain 2. Nausea 3. Chills ED Disposition - Plan for ED Patient: Disposition: Home or Assisted Living Instructions: ED Diet for Vomiting or Diarrhea Adult Prescriptions: proMETHazine tablet [Phenergan] 25 mg PO Q6H PRN PRN #10 tab PRN Reason: Nausea Prescription Printed Referrals: Brandon Jay Chi, MD [Primary Care Provider] -
[2020-08-06 19:52] VITALS: BP 150/89; PULSE 60; RESP 16; TEMP 36.1; O2SAT 100
[2020-08-06] MEDS: proMETHazine 25 MG/ML Syringe 12.5 MG IV (20:06)
[2020-08-06 20:13] LABS: Bacteria 0 SEEN /hpf (None Seen); Mucous, Urine 0 SEEN /hpf (<or=2+); Red Blood Cells-Urine 0 SEEN /hpf (0-5); White Blood Cells 0 SEEN /hpf (0-5)
[2020-08-06 20:14] LABS: Color, Urine Yellow (Yellow); Glucose, Dipstick Normal (Normal); Ketone-Dipstick Negative (Negative); Leukocyte Esterase-Dipstick Negative /ul (Negative); Nitrite-Dipstick Negative (Negative); Occult Blood-Urine Negative /ul (Negative); Protein-Dipstick Negative (Negative); Specific Gravity, Urine 1.015 (1.002-1.030); Urine Bilirubin Dipstick Negative (Negative); Urine Clarity Clear (Clear); Urine Urobilinogen Normal (Normal)
[2020-08-06 20:15] LABS: Absolute Lymphocyte Count 1.46 X10^3/uL (0.83-4.51); Absolute Neutrophil Count 7.9 X10^3/uL (2.0-7.7); Basophil# 0.02 X10^3/uL; Basophil% 0.2 % (0-1); Eosinophil# 0.04 X10^3/uL; Eosinophils% 0.4 % (0-5); Hematocrit 39.4 % (37-47); Hemoglobin 12.8 g/dL (12.0-15.0); Lymphocyte # 1.46 X10^3/ul (4.0); Lymphocyte % 14.5 % (19-41); Mean Corp Hgb Conc 32.5 g/dL (32-36); Mean Corpuscular Hgb 32.1 pg (27.0-32.0); Mean Corpuscular Volume 98.7 fL (81-99); Mean Platelet Vol. 10.3 fl (6.2-12.0); Monocyte# 0.68 X10^3/uL; Monocyte% 6.7 % (0-10); NRBC Flagged by Analyzer 0 % (0-5); Neutrophil # 7.85 X10^3/uL (2.7-7.7); Neutrophil % 77.8 % (47-70); Platelet Count 165 K/mm3 (150-450); RBC Distribution Width SD 43.7 fl (35.1-43.9); Red Blood Count 3.99 M/mm3 (4.2-5.4); White Blood Count 10.1 K/mm3 (4.4-11.0)
[2020-08-06 20:21] LABS: Squamous Epithelial Cells - UA 0-5 SEEN /hpf (5-10)
[2020-08-06 20:33] LABS: ALB/GLOB Ratio 1.3 RATIO (0.9-2.4); AST(SGOT) 20 U/L (15-37); Alanine Aminotransfer ALT/SGPT 19 U/L (13-56); Alkaline Phosphatase 155 U/L (45-117); Anion Gap 6 (5-15); BUN 13 mg/dL (7-18); BUN/Creat Ratio 14.3 RATIO (10-20); Calcium,Total 9.3 mg/dL (8.5-10.1); Chloride 109 mmol/L (98-107); Creatinine, Serum 0.91 mg/dL (0.55-1.02); EST Glomerular Filtration Rate 68 mL/min (>60); Est Glom Filt Rate - Afr Amer 82 mL/min (>60); Estimated Creatinine Clearance 66.16 ml/min; Globulin 3.1 g/dL (2.2-4.2); Glucose 101 mg/dL (74-106); Potassium 3.2 mmol/L (3.5-5.1); Protein, Total 7.1 g/dL (6.4-8.2); Sodium Level 143 mmol/L (136-145)
[2020-08-06] MEDS: DiphenhydrAMINE 50 MG/ML Syringe 25 MG IV (20:51)
[2020-08-06] MEDS: Metoclopramide 10 MG/2 ML Vial IV (20:51)
[2020-08-06 21:26] VITALS: BP 154/90; PULSE 65; RESP 16; O2SAT 95
== END 2020-08-06 21:53 | disposition home or self-care (01) ==
PROVIDERS: Emergency Provider Student in an Organized Health Care Education/Training Program; PCP Family Medicine Geriatric Medicine
DX: R11.2 Nausea with vomiting, unspecified (principal); R68.83 Chills (without fever)
CPT/HCPCS: 80053; 81001; 85025; 87426; 96374; 96375; 99283; A4216

== ENCOUNTER → 2020-09-05 16:18 | Outpatient (CLI) | payer OTHER, SELFPAY ==
[2020-08-06 18:57] VITALS: BMI 43.5
--- NOTE | 2020-09-05 16:20 | RAD_ITS ---
STUDY: X-RAY - LEFT WRIST REASON FOR EXAM: Radial wrist pain for about a month, no specific injury. TECHNIQUE: 3 view(s) of the wrist were obtained. COMPARISON: None. FINDINGS: Normal visualized distal radius and ulna. Normal radiocarpal articulation. Normal distal radioulnar articulation. Normal carpal bones. Normal carpal articulations. Normal carpometacarpal articulation of the thumb. Normal second through fifth carpometacarpal articulations. Normal visualized metacarpal bones. The soft tissue structures are unremarkable. RAD/Wrist min 3 Views IMPRESSION: Normal x-ray examination of the left wrist. Electronically Signed: Reyes Sharp MD at 11:54 EST Tel , Service support ,
== END ==
PROVIDERS: PCP Family Medicine Geriatric Medicine; Referring Provider Family Medicine Geriatric Medicine; Visit Provider Family Medicine Geriatric Medicine
DX: M25.532 Pain in left wrist (principal)
CPT/HCPCS: 73110

== ENCOUNTER → 2020-09-22 14:50 | Outpatient (CLI) | payer OTHER, SELFPAY ==
[2020-09-28 12:54] LABS: HPV Reflexed? NOT INDICATED
== END ==
LOC: WOBLAB 14:51
PROVIDERS: PCP Family Medicine Geriatric Medicine; Visit Provider Obstetrics & Gynecology
DX: Z12.4 Encounter for screening for malignant neoplasm of cervix (principal)
CPT/HCPCS: 88175; G0145

== ENCOUNTER → 2020-10-11 09:39 | Outpatient (CLI) | payer OTHER, SELFPAY ==
--- NOTE | 2020-10-11 09:45 | VDLE_ITS ---
Reason For Study: Hx of EVLA RLE RIGHT CFV is compressible, spontaneous, phasic, competent and demonstrates normal augmentation. FV is compressible, spontaneous, phasic, competent and demonstrates normal augmentation. POP V is compressible, spontaneous, phasic, competent and demonstrates normal augmentation. T/P Trunk is compressible. PTV is compressible. RT PerV is compressible. GSV, duplicate GSV and SSV are occluded s/p EVLA. Unable to visualize anterior ASV. Procedure This is a venous duplex using B-mode, color flow and spectral Doppler. Exam performed in department. VL/Venous Duplex US, Unilateral Interpretation Summary Deep veins of the right lower extremity are patent and compressible segmentally . There is no evidence of right lower extremity deep vein thrombosis. Valvular competence evan ears intact within the proximal deep venous system on the right . The right great saphenous vein, duplicate great saphenous vein, and small saphenous vein are occluded, consistent with a prior endothermal ablation procedure. The right anterior accessory saphenous vein was not visualized. Ordering Physician: Hamlet Soliman Referring Physician: Brandon Jay Chi Performed By: Nicki Pantoja RVT and Student
== END ==
PROVIDERS: PCP Family Medicine Geriatric Medicine; Referring Provider Surgery; Visit Provider Surgery
DX: I83.10 Varicose veins of unspecified lower extremity with inflammation (principal)
CPT/HCPCS: 93971

== ENCOUNTER → 2020-11-09 14:58 | Outpatient (CLI) | payer OTHER, SELFPAY | PROVIDERS: PCP Family Medicine Geriatric Medicine; Referring Provider Family Medicine Geriatric Medicine; Visit Provider Family Medicine Geriatric Medicine | DX: U07.1 COVID-19 (principal) | CPT/HCPCS: 87635; C9803; U0002 ==

== ENCOUNTER → 2020-12-26 12:38 | Outpatient (CLI) | payer OTHER, SELFPAY ==
--- NOTE | 2020-12-26 12:39 | VDLE_ITS ---
Reason For Study: EDEMA RIGHT LEFT CFV is compressible, spontaneous, phasic, GSV is normal. competent and demonstrates normal CFV is compressible, spontaneous, phasic, augmentation. competent, and demonstrates normal Procedure augmentation. Exam performed in department. FV is compressible, spontaneous, phasic, A preliminary report was called and/or faxed competent and demonstrates normal to DR JAY. augmentation. POP V is compressible, spontaneous, phasic, competent and demonstrates normal augmentation. T/P Trunk is compressible. PTV is compressible. LT PerV is compressible. VL/Venous Duplex US, Unilateral Interpretation Summary Deep veins of the left lower extremity are patent and compressible segmentally. There is no evidence of left lower extremity deep vein thrombosis. Valvular competence appears intac t within the proximal deep venous system on the left . The left great saphenous vein appears patent a nd compressible segmentally. Ordering Physician: Brandon Jay Referring Physician: Brandon Jay Chi Performed By: Yamile Ram, RDCS, RVT
== END ==
PROVIDERS: PCP Family Medicine Geriatric Medicine; Referring Provider Family Medicine Geriatric Medicine; Visit Provider Family Medicine Geriatric Medicine
DX: R60.0 Localized edema (principal)
CPT/HCPCS: 93971

== ENCOUNTER → 2021-01-04 09:38 | Outpatient (CLI) | payer OTHER, SELFPAY ==
[2021-01-04 10:56] LABS: Absolute Lymphocyte Count 1.41 X10^3/uL (0.83-4.51); Absolute Neutrophil Count 2.8 X10^3/uL (2.0-7.7); Basophil# 0.02 X10^3/uL; Basophil% 0.4 % (0-1); Eosinophil# 0.07 X10^3/uL; Eosinophils% 1.5 % (0-5); Hematocrit 40.6 % (37-47); Hemoglobin 13.2 g/dL (12.0-15.0); Lymphocyte # 1.41 X10^3/ul (0.83-4.51); Lymphocyte % 29.7 % (19-41); Mean Corp Hgb Conc 32.5 g/dL (32-36); Mean Corpuscular Hgb 32.2 pg (27.0-32.0); Mean Platelet Vol. 10.8 fl (6.2-12.0); Monocyte# 0.48 X10^3/uL; Monocyte% 10.1 % (0-10); NRBC Flagged by Analyzer 0 % (0-5); Neutrophil # 2.76 X10^3/uL (2.7-7.7); Neutrophil % 58.1 % (47-70); Platelet Count 189 K/mm3 (150-450); RBC Distribution Width CV 11.8 % (11.6-14.6); RBC Distribution Width SD 42.8 fl (35.1-43.9); White Blood Count 4.8 K/mm3 (4.4-11.0)
[2021-01-04 11:16] LABS: Vitamin D,25 Hydroxy 18.8 ng/mL
[2021-01-04 11:28] LABS: ALB/GLOB Ratio 1.1 RATIO (0.9-2.4); AST(SGOT) 23 U/L (15-37); Alanine Aminotransfer ALT/SGPT 25 U/L (13-56); Albumin, Serum 3.9 g/dL (3.2-5.0); Alkaline Phosphatase 130 U/L (45-117); Anion Gap 7 (5-15); BUN 14 mg/dL (7-18); BUN/Creat Ratio 15.8 RATIO (10-20); Calcium,Total 9.3 mg/dL (8.5-10.1); Chloride 104 mmol/L (98-107); Creatinine, Serum 0.88 mg/dL (0.55-1.02); EST Glomerular Filtration Rate 70 mL/min (>60); Est Glom Filt Rate - Afr Amer 85 mL/min (>60); Globulin 3.4 g/dL (2.2-4.2); Glucose 88 mg/dL (74-106); Potassium 3.7 mmol/L (3.5-5.1); Protein, Total 7.3 g/dL (6.4-8.2); Sodium Level 141 mmol/L (136-145); Thyroid Stim Hormone (TSH) 2.88 uIU/mL (0.358-3.74)
== END ==
PROVIDERS: PCP Family Medicine Geriatric Medicine; Visit Provider Family Medicine Geriatric Medicine
DX: E55.9 Vitamin D deficiency, unspecified (principal); I10 Essential (primary) hypertension
CPT/HCPCS: 36415; 80053; 82306; 84443; 85025

== ENCOUNTER → 2021-01-27 14:46 | Outpatient (CLI) | payer OTHER, SELFPAY ==
--- NOTE | 2021-01-27 14:48 | BI_ITS ---
MAMMOGRAPHY - BILATERAL SCREENING 3-D TOMOSYNTHESIS REASON FOR EXAM: Female, 55 years old. SCREENING PERTINENT HISTORY: No significant family history. TECHNIQUE: 2-D mammograms and 3-D Tomosynthesis of the breast (s) were performed. CAD was performed. COMPARISON: 2018 FINDINGS: The breast composition is almost entirely fat. Scattered benign calcifications are seen. No dense spiculated masses or suspicious microcalcifications are identified. No architectural distortion is identified. There is no skin thickening or retraction. There has been no significant change since the prior study. BI/SCRN MAMM (CAD)W/WADE BILAT IMPRESSION: No mammographic signs of malignancy. Routine yearly mammograms recommended. ASSESSMENT CATEGORY: BIRADS Category 1: Negative. A letter regarding these results will be sent to the patient by the facility within 30 days. FOLLOW UP RECOMMENDATION: Yearly follow up mammogram recommended. (A) Approximately 10% of breast cancers are not detected by mammography. A normal mammogram should not delay biopsy of a clinically suspicious abnormality. Electronically Signed: Rahul Denny MD at 15:43 EDT , Service support ,
== END ==
PROVIDERS: PCP Family Medicine Geriatric Medicine; Referring Provider Obstetrics & Gynecology; Visit Provider Obstetrics & Gynecology
DX: Z12.31 Encounter for screening mammogram for malignant neoplasm of breast (principal)
CPT/HCPCS: 77063; 77067

== ENCOUNTER → 2021-05-01 10:26 | Outpatient (CLI) | payer OTHER, SELFPAY ==
--- NOTE | 2021-05-01 10:30 | RAD_ITS ---
STUDY: X-RAY - LEFT KNEE REASON FOR EXAM: Female, 55 years old. KNEE PAIN TECHNIQUE: 4 view(s) of the knee. COMPARISON: None. FINDINGS: Normal visualized distal femur. Normal visualized proximal tibia and fibula. Normal proximal tibiofibular articulation. Normal medial femorotibial compartment. Normal lateral femorotibial compartment. Normal patellofemoral articulation. The soft tissue structures are unremarkable. RAD/Knee 4 or More Views IMPRESSION: Normal x-ray examination of the knee. Electronically Signed: Andi Kennedy MD at 11:26 EDT Tel , Service support ,
--- NOTE | 2021-05-01 10:31 | RAD_ITS ---
STUDY: X-RAY - RIGHT ANKLE REASON FOR EXAM: Female, 55 years old. ANKLE PAIN TECHNIQUE: 4 view(s) of the ankle. COMPARISON: None. FINDINGS: Normal visualized distal tibia and fibula. Normal medial and lateral malleoli. Normal tibiotalar articulation and ankle mortise. Normal visualized talus and calcaneus. Tiny plantar calcaneal enthesophyte. The visualized subtalar, talonavicular, calcaneocuboid and tarsal articulations are normal. The soft tissue structures are unremarkable. RAD/Ankle min 3 Views IMPRESSION: Normal x-ray examination of the ankle. Electronically Signed: Andi Kennedy MD at 11:29 EDT Tel , Service support ,
--- NOTE | 2021-05-01 10:32 | RAD_ITS ---
STUDY: X-RAY - RIGHT FOOT CLINICAL: Female, 55 years old. FOOT PAIN TECHNIQUE: 3 view(s) of the foot. COMPARISON: 06/05/2012 FINDINGS: Normal talus, calcaneus, and tarsal bones. 5 mm type I accessory navicular bone. Tiny plantar calcaneal enthesophyte. Normal visualized subtalar, talonavicular, calcaneocuboid, tarsal and tarsometatarsal articulations. Normal metatarsi. Normal metatarsophalangeal joint of the great toe. Normal tibial and fibular sesamoid bones. Normal interphalangeal joint of the great toe. Normal phalanges of the great toe. Normal second through fifth metatarsophalangeal joints. Normal interphalangeal joints and phalanges of the lesser toes. The soft tissue structures are unremarkable. RAD/Foot min 3 Views IMPRESSION: No acute fracture or dislocation. Electronically Signed: Andi Kennedy MD at 11:29 EDT Tel , Service support ,
== END ==
PROVIDERS: PCP Family Medicine Geriatric Medicine; Referring Provider Family Medicine Geriatric Medicine; Visit Provider Family Medicine Geriatric Medicine
DX: M25.562 Pain in left knee (principal); M25.571 Pain in right ankle and joints of right foot
CPT/HCPCS: 73564; 73610; 73630

== ENCOUNTER 2021-07-13 15:30 | Outpatient (RCR) | payer OTHER, SELFPAY ==
--- NOTE | 2021-07-05 12:09 | HP.OTEVAL_ITS ---
Patient's Visit Information MARIA L BANEGAS is a 55 year old F, referred to Occupational Therapy by Dr. Romero Gonzalez MD, with a diagnosis of left wrist dequivains. Date of Evaluation: 07/05/21 Occupational Therapist: Caren Rodríguez, MAYOR/My, CHT - Subjective This 55 year old female was seen for OT eval with dx of DeQuervain's. pt states this pain has been bothering her for about two years. pt just had a cortisone shot a week ago (her 2nd) . 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 pt states she does have a brace she got in -August 2019. that did help but has not used it lately. pt states most pain is in AM when she first gets up. pt would like to know what she can do to prevent this from returning. - Pain left wrist 0 Pain Intensity Range: 8 - ROM Wrist: right 75/75 left 60/65 CMC: right 10 left 10 MP: right 50 left 45 IP: right 75 left 70 - Strength Ratings Analyst: right 55# left 65# Lateral Pinch: right 10# left 10# Tripod Pinch: right 8# left 8# Tip-to-Tip Pinch: right 4# Left 4# Strength Comments: pt denies pain - Sensation Sensation Comments: denies - Special Tests WHAT Test: left positive - Goals Goal:: pt will demo a increase in left equipment cleaner strength by 10# and lateral and tripod pinch by 4# to increase pts ind. with ADLs and IADls Goal:: pt will demo a increase in left wrist ROM by 10* to increase pts ind with cooking/cleaning and other ADls by d/c Goal:: pt will report no pain with use of left UE with ADLs and IADLs by d.c Goal:: pt will demo understanding of wrist ergo and avoidance of wrist flexed with grasp positioning and other joint protection azeem. to limit stress on tendon by d.c Goal:: pt will demo understanding of using wrist brace at night for 8 weeks to decrease prolonged wrist flex/or ext positioning - Rehabilitation General Assessment: pt demo with positive tenosynovitis left wrist noted thumb instability with resistive testing indicating possible cmc arthritis - pt has pain with movement and most pain when she wakes up in the AM. pt demo need for skilled OT services 1-2x week for 4 weeks to ed. and decreases pain with use of ADLs. pt demo understanding and agree to POC. Rehabilitation Potential: Good - Anticipated Interventions A/AAROM/PROM, Strengthening, Ergonomic Education, Home Program - Visit Plan Frequency: 1x/Week Duration: 4 Weeks General Plan: Therapist ed. pt to avoid sustained stretch of wrist flex/ext. and avoid repetitive pinching activities or activities pinching with the wrist in flexion or ulnar deviation for long periods of time. Therapy will initiate passive stretching. isometric and eccentric ex followed with PRE as tolerated. therapist ed. pt on use of brace at night for next 8 weeks,. cont. to ensure pt has good work station and ergo with ADLs TEXT: Thank you for the opportunity to evaluate your patient. For Medicare and Medicare HMO plans, please review the plan of care and approve it. It will need to be FAXED BACK to us at [phone] for Medicare purposes. Please let me know if there are questions or concerns regarding this plan of care. Physician Signature: Date:
--- NOTE | 2021-07-05 12:11 | HP.OTEVAL_ITS ---
Patient's Visit Information MARIA L BANEGAS is a 55 year old F, referred to Occupational Therapy by Dr. Romero Gonzalez MD, with a diagnosis of left wrist dequivains. Date of Evaluation: 07/05/21 Occupational Therapist: Caren Rodríguez, RICCO/My, CHT - Subjective This 55 year old female was seen for OT eval with dx of DeQuervain's. pt states this pain has been bothering her for about two years. pt just had a cortisone shot a week ago (her 2nd) . 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 pt states she does have a brace she got in -August 2019. that did help but has not used it lately. pt states most pain is in AM when she first gets up. pt would like to know what she can do to prevent this from returning. - Pain left wrist 0 Pain Intensity Range: 8 - ROM Wrist: right 75/75 left 60/65 CMC: right 10 left 10 MP: right 50 left 45 IP: right 75 left 70 - Strength Head Of Product: right 55# left 65# Lateral Pinch: right 10# left 10# Tripod Pinch: right 8# left 8# Tip-to-Tip Pinch: right 4# Left 4# Strength Comments: pt denies pain - Sensation Sensation Comments: denies - Special Tests WHAT Test: left positive - Quick DASH-Disab of Arm,Shoulder& Hand Quick DASH Score: 26.6650 - Goals Goal:: pt will demo a increase in left director of patient care strength by 10# and lateral and tripod pinch by 4# to increase pts ind. with ADLs and IADls Goal:: pt will demo a increase in left wrist ROM by 10* to increase pts ind with cooking/cleaning and other ADls by d/c Goal:: pt will report no pain with use of left UE with ADLs and IADLs by d.c Goal:: pt will demo understanding of wrist ergo and avoidance of wrist flexed with grasp positioning and other joint protection azeem. to limit stress on tendon by d.c Goal:: pt will demo understanding of using wrist brace at night for 8 weeks to decrease prolonged wrist flex/or ext positioning - Rehabilitation General Assessment: pt demo with positive tenosynovitis left wrist noted thumb instability with resistive testing indicating possible cmc arthritis - pt has pain with movement and most pain when she wakes up in the AM. pt demo need for skilled OT services 1-2x week for 4 weeks to ed. and decreases pain with use of ADLs. pt demo understanding and agree to POC. Rehabilitation Potential: Good - Anticipated Interventions A/AAROM/PROM, Strengthening, Ergonomic Education, Home Program - Visit Plan Frequency: 1x/Week Duration: 4 Weeks General Plan: Therapist ed. pt to avoid sustained stretch of wrist flex/ext. and avoid repetitive pinching activities or activities pinching with the wrist in flexion or ulnar deviation for long periods of time. Therapy will initiate passive stretching. isometric and eccentric ex followed with PRE as tolerated. therapist ed. pt on use of brace at night for next 8 weeks,. cont. to ensure pt has good work station and ergo with ADLs TEXT: Thank you for the opportunity to evaluate your patient. For Medicare and Medicare HMO plans, please review the plan of care and approve it. It will need to be FAXED BACK to us at [phone] for Medicare purposes. Please let me know if there are questions or concerns regarding this plan of care. Physician Signature: Date:
--- NOTE | 2021-11-13 11:04 | HP.OT.NRP ---
MARIA L BANEGAS was seen in my office for initial evaluation on 07/05/21. The following Plan of Care was established for this patient: Initial Frequency: 1x/Week Initial Duration: 4 Weeks Plan: continue with OT POC Anticipated Interventions: A/AAROM/PROM, Strengthening, Ergonomic Education, Home Program This patient was last seen in our office 07/13/21. Pertinent comments regarding their Occupational therapy will appear below: pt was seen for one follow up OT visits for a total of 2 visits- OT completed with focus on improving pts. ROM and strength L wrist and hand. Completed isometric exercises L wrist flex/ext, reviewed HEP and gave further instruction on proper techs for completing TE. Education on joint protection and ergonomics with LUE use, i.e. using office equipment, and avoiding prolong wrist and thumb flexion/ext. Due to time lapse in services pt is D/C at this time. At this point I will be discontinuing this patient from occupational therapy. I would be happy to see this patient again in the future if found appropriate by the physician. Thank you! Caren Rodríguez, OTR/L, CHT
== END 2021-07-13 19:00 | disposition home or self-care (01) ==
LOC: OT 15:30
PROVIDERS: PCP Family Medicine Geriatric Medicine; Referring Provider Specialist; Visit Provider Specialist
DX: M65.4 Radial styloid tenosynovitis [de Quervain] (principal)
CPT/HCPCS: 97110; 97166; 97530

== ENCOUNTER → 2021-11-06 | Outpatient (CLI) | payer OTHER, SELFPAY ==
[2021-11-06 18:35] LABS: M R Staph aureus DNA By PCR Negative (Negative); Probe Check PASS; Staph aureus DNA By PCR NEGATIVE (Negative)
== END | disposition home or self-care (01) ==
LOC: LABSPEC 16:04
PROVIDERS: PCP Family Medicine Geriatric Medicine; Visit Provider Family Medicine Geriatric Medicine
DX: L03.90 Cellulitis, unspecified (principal)
CPT/HCPCS: 87070; 87077; 87186; 87205; 87640

== ENCOUNTER → 2022-03-08 | Outpatient (CLI) | payer OTHER, SELFPAY ==
--- NOTE | 2022-03-08 17:31 | RAD_ITS ---
STUDY: X-RAY - LEFT SHOULDER REASON FOR EXAM: Left shoulder pain, fall 1 year ago. TECHNIQUE: 4 view(s) of the shoulder. COMPARISON: None. FINDINGS: Normal glenohumeral articulation. Normal acromioclavicular joint. Normal acromion. Normal humeral head and visualized proximal humerus. The soft tissue structures are unremarkable. Normal visualized pulmonary apex. RAD/Shoulder min 2 Views IMPRESSION: Unremarkable x-ray examination of the left shoulder. Electronically Signed: Reyes Sharp MD at 7:31 EDT ,
== END | disposition home or self-care (01) ==
LOC: RAD 17:25
PROVIDERS: PCP Family Medicine Geriatric Medicine; Referring Provider Family Medicine Geriatric Medicine; Visit Provider Family Medicine Geriatric Medicine
DX: M25.512 Pain in left shoulder (principal)
CPT/HCPCS: 73030

== ENCOUNTER → 2022-06-01 | Outpatient (CLI) | payer OTHER, SELFPAY ==
--- NOTE | 2022-06-01 14:54 | BI_ITS ---
MAMMOGRAPHY - BILATERAL SCREENING REASON FOR EXAM: Female, 56 years old. Routine annual screening examination. PERTINENT HISTORY: Non-contributory. TECHNIQUE: Digital bilateral breast wade (3D mammographic acquisition) in the CC and MLO projections. 2-D mediolateral oblique (MLO) and craniocaudad (CC) views of both breasts were obtained. CAD: Full Field Digital Mammography with Computer Added Detection was performed. COMPARISON: Comparison is made with prior study 01/27/2021 and 05/30/2018. FINDINGS: Breast Composition: The breasts are almost entirely fatty. There are no dominant masses or suspicious calcifications. Stable small left axillary lymph node. No other significant abnormalities are identified. There has been no significant change since the prior study. BI/SCRN MAMM (CAD)W/WADE BILAT IMPRESSION: Stable bilateral screening mammogram. Yearly follow-up mammogram recommended. (A) ASSESSMENT CATEGORY: BIRADS Category 2: Benign. A letter regarding these results will be sent to the patient by the facility within 30 days. Approximately 10% of breast cancers are not detected by mammography. A normal mammogram should not delay biopsy of a clinically suspicious abnormality. [id number] Electronically Signed: Al Heaton MD at 15:35 EST ,
== END | disposition home or self-care (01) ==
PROVIDERS: PCP Family Medicine Geriatric Medicine; Visit Provider Student in an Organized Health Care Education/Training Program
DX: Z12.31 Encounter for screening mammogram for malignant neoplasm of breast (principal)
CPT/HCPCS: 77063; 77067

== ENCOUNTER → 2022-07-27 | Outpatient (CLI) | payer OTHER, SELFPAY ==
--- NOTE | 2022-07-27 13:45 | MRI_ITS ---
EXAM: MR LEFT UPPER EXTREMITY WITHOUT INTRAVENOUS CONTRAST, SHOULDER CLINICAL INDICATION: LEFT rotator cuff syndrome TECHNIQUE: Multiplanar and multisequence MR images of the left shoulder without intravenous contrast. This report was created using [employer] report generation technology. COMPARISON: None. FINDINGS: TENDONS: SUPRASPINATUS: Focal low to moderate grade partial-thickness intrasubstance tearing suspected involving the myotendinous junction of the supraspinatus posterior fibers. This type tear is likely to be concealed or hidden at the time of arthroscopy. INFRASPINATUS: Unremarkable. Intact. SUBSCAPULARIS: Unremarkable. Intact. TERES MINOR: Unremarkable. Intact. BICEPS BRACHII, LONG HEAD: Long head of the biceps tendon is normal in position and appearance. The extra-articular biceps tendon is in the bicipital groove. LIGAMENTS: GLENOHUMERAL: Unremarkable. Intact. CORACOACROMIAL: Unremarkable. No os acromiale. No coracoacromial ligament thickening. No subacromial enthesophyte. Type II acromion with curved undersurface. MUSCLES: Muscles normal. No rotator cuff muscle atrophy. FLUID: Moderate amount of fluid signal with synovitis involving the subacromial/subdeltoid bursa is compatible with bursitis. No joint effusion. CARTILAGE: Unremarkable. Articular cartilage intact. GLENOID LABRUM: Unremarkable. No labral tear. BONES/JOINTS: Moderate hypertrophic degenerative changes involving the acromioclavicular joint with mild mass effect on the underlying soft tissues. Rotator interval is normal. No other bone marrow signal alterations. OTHER SOFT TISSUES: Unremarkable. No rotator interval edema. OTHER FINDINGS: Neurovascular structures are normal. MRI/Upper Ext Joint Only(Routine) IMPRESSION: Focal low to moderate grade partial-thickness intrasubstance tearing suspected involving the myotendinous junction of the supraspinatus posterior fibers. This type tear is likely to be concealed or hidden at the time of arthroscopy. Moderate amount of fluid signal with synovitis involving the subacromial/subdeltoid bursa is compatible with bursitis. Electronically Signed: Jerrell Vang MD at 4:20 EST ,
== END | disposition home or self-care (01) ==
PROVIDERS: PCP Family Medicine Geriatric Medicine; Referring Provider Family Medicine Geriatric Medicine; Visit Provider Family Medicine Geriatric Medicine
DX: M75.102 Unspecified rotator cuff tear or rupture of left shoulder, not specified as traumatic (principal); M25.512 Pain in left shoulder
CPT/HCPCS: 73221

== ENCOUNTER 2022-09-20 15:30 | Outpatient (RCR) | payer OTHER, SELFPAY ==
--- NOTE | 2022-08-23 16:05 | HP.PTEVAL ---
Patient's Visit Information MARIA L BANEGAS is a 56 year old F referred to Physical Therapy by Dr. Shubham Floyd DO with a diagnosis of RC strain L. Date of Evaluation: 08/23/22 Physical Therapist: Jj Davies, DPT, OCS, CSCS - Visit Plan Frequency: 2x /Week Duration: 4-6 Weeks Plan: 2x/week for 4-6 weeks for. 1. ensure appropriate activity modificaiton for healing. 2. stretch pecs and AAROM to maintain motion. 3. strength of RC and scap to HEP as tolerated. ice as needed. - Subjective L RCT insidious. Hurting for 7 months or so. It was very painful so PCP gave cortisone and steroids adn referred to [facility] [facility]. [place] suggested PT. It might be helpful. Put on antiinflammatory which has helped. Currently no pain at rest. Bad pain to lift to the side. better this week then last week. Sleep is not interrupted now that she is on anti inflamm but it was. Sleeps on sides. 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 Working with her pain and not bad later in day. wrong movememnt makes her notice. Basic ADLS: Doing all of them, has to be careful to walk arm as it will be painful if jerked. Hobbies include: walking dog, reading, rekhi. Just walking. - Pain L shoulder Pain Intensity (Out of 10): 0 Pain Intensity Range: 0, 9 - Objective Walks into and out of PT I, transfers I bed and chair. protracted scapula B. Pec minor tight. cervical aROM is WFL and pain free. Scapular AROM full. Full B UE AROM with just some slight pain end range of abduction and IR slightly on L. If tries to abduct with palm down and IR then she really hurts. reflexes 2/3 patella and achilles. Sensation UE WNL to gross light touch. - ext rotation lag test. - drop arm. - sulcus. - labral. strength is weak in flexion, abd and ext rotation on L at 4- vs 4 on R, IR are 4+ B. Some minor pain L with ext rotation and abduction. elbow and wrist strength are symmetrical and painfree. - Balance/Special Test Scores Quick DASH Score: 22.7250 - Goals Goal 1:: Full aROM L UE without pain including elevation in IR and abduction Goal Time Frame: 4-6 Weeks Goal 2:: patient feel 95% better overall Goal Time Frame: 4-6 Weeks Goal 3:: I appropriate stretches, ROM and strength to manage condition Goal Time Frame: 4-6 Weeks Goal 4:: quickdash score 14 or better. Goal Time Frame: 2-4 Weeks - Rehabilitation Potential Physical Therapy Diagnosis: RC strain L, tear. Rehabilitation Potential: Good - Anticipated Interventions Patient/Client Instruction: Educate patient on: Condition, Plan of Care For the Purpose of:: To decrease pain, To improve nutrient delivery to tissue, To improve muscle performance and motor function, To increase tolerance to activity/condition/position, To improve ability of physical actions for home/community/work/leisure Therapeutic Exercise to Include: Strength training, Flexibilty training, Passive ROM, Active ROM, Scapular Strength/Stabilization For the Purpose of:: To decrease pain, To increase ROM, To improve nutrient delivery to tissue, To improve muscle performance and motor function, To increase tolerance to activity/condition/position Manual Therapy Techniques to Include: Soft tissue mobilization For the Purpose of:: To decrease pain, To decrease swelling/inflammation Cryotherapy (ice pack, ice massage): Yes For the Purpose of:: To decrease swelling/inflammation Thank you for the opportunity to evaluate your patient. For Medicare and Medicare HMO plans, please review the plan of care and approve it. It will need to be FAXED BACK to us at [phone] for Medicare purposes. For Medicare only, by signing this I certify the plan of care. Please let me know if there are questions or concerns regarding this plan of care. Physician Signature: Date:
--- NOTE | 2022-09-20 15:50 | HP.PTDCSUM ---
It has been my pleasure to treat MARIA L BANEGAS referred by Dr. Shubham Floyd DO, with the diagnosis of RC strain L for a total of 7 visit(s). Discharge Date: 09/20/22 Please see the following information for a summary of their discharge status. Subjective: Improved. Lifting arm up to side with IR still hurts but improving. No other problems. Sleep is OK. Exercises at home are Ok GTB,. No f/u with doctor. Activities normal. L shoulder Pain Intensity (Out of 10): 9 % Improvement: 75 Objective/Function: Full AROM. strength is 4+ in r shoulder except er at 4- and flexion/abd at 4-. Good function. Goal 1:: Full aROM L UE without pain including elevation in IR and abduction Goal Progress: Goal Met Goal 2:: patient feel 95% better overall Goal Progress: 75% Goal 3:: I appropriate stretches, ROM and strength to manage condition Goal Progress: Goal Met Goal 4:: quickdash score 14 or better. Goal Progress: Progressing Plan: d/c to HEP/gym If there are questions or concerns regarding this patient's physical therapy, please feel free to call me at [phone]. Thank you for the referral of this patient. Sincerely, Jj Davies, DPT, OCS, CSCS Balance/Gait/Functional tests - Balance/Special Test Scores Quick DASH Score: 11.3625
== END 2022-09-20 19:00 | disposition home or self-care (01) ==
LOC: PT 15:30
PROVIDERS: PCP Family Medicine Geriatric Medicine; Referring Provider Student in an Organized Health Care Education/Training Program; Visit Provider Student in an Organized Health Care Education/Training Program
DX: S46.012D Strain of muscle(s) and tendon(s) of the rotator cuff of left shoulder, subsequent encounter (principal)
CPT/HCPCS: 97110; 97161; 97164

== ENCOUNTER → 2023-08-01 | Outpatient (CLI) | payer OTHER, SELFPAY ==
--- NOTE | 2023-08-01 15:35 | BI_ITS ---
MAMMOGRAPHY - BILATERAL SCREENING REASON FOR EXAM: Female, 57 years old. Routine annual screening examination. PERTINENT HISTORY: Non-contributory. TECHNIQUE: Digital bilateral breast wade (3D mammographic acquisition) in the CC and MLO projections. 2-D mediolateral oblique (MLO) and craniocaudad (CC) views of both breasts were obtained. CAD: Full Field Digital Mammography with Computer Added Detection was performed. COMPARISON: Comparison is made with prior study dated June 01, 2022 and January 27, 2021. FINDINGS: Breast Composition: The breasts are almost entirely fatty. There are no dominant masses or suspicious calcifications. No other significant abnormalities are identified. There has been no significant change since the prior study. BI/SCRN MAMM (CAD)W/WADE BILAT IMPRESSION: Stable bilateral screening mammogram. Yearly follow-up mammogram recommended. (A) ASSESSMENT CATEGORY: BIRADS Category 1: Negative. A letter regarding these results will be sent to the patient by the facility within 30 days. Approximately 10% of breast cancers are not detected by mammography. A normal mammogram should not delay biopsy of a clinically suspicious abnormality. [id number] Electronically Signed: Al Heaton MD at 8:20 EST ,
--- OUTSIDE RECORDS SUMMARY | 2023-08-01 19:29 | XMS RPT_ITS | CCD ---
Author Name Unknown Address [address] [place] [address] Organization [facility] Care Team Providers Care Lead Man [employer] Name Role Phone ELIAS AMADOR Unavailable Unavailable ELIAS AMADOR Unavailable Unavailable Allergies Allergy Classification Reported Allergen(s) Allergy Type Date of Onset Reaction(s) Facility (1 source) acetaminophen / HYDROcodone; Translations: [HYDROCODONE-ACET AMINOPHEN] Drug Allergy 7 [facility] (1 source) Sulfonamides (Antibiotic); Translations: [SULFA (SULFONAMIDE ANTIBIOTICS)] Propensity to adverse reactions to drug (disorder) 6 [facility] Rep[facility] Results Test Name Value Interpretation Reference Range Facil ity Encounters Encounter Date Encounter Type Care Provider Facility Start: 01-29-2017 End: 01-29-2017 Ambulatory ELIAS AMADOR [facility] Summary Purpose Family History No Family History Records Found Advance Directives No Advanced Directives Records Found Additional Source Comments INFORMATION SOURCE (unrecogn ized section and content) FOR RECORDS PERTAINING TO PATIENTS WHO ARE OR HAVE BEEN ENROLLED IN A CHEMICAL DEPENDENCY/SUBSTANCEABUSE PROGRAM, SOME INFORMATION MAY BE OMITTED. This clinical summary was aggregated from multiple sources. Caution should be exercised in using it in the provision of clinical care. This summary normalizes information from multiple sources, and as a consequence, information in this document may materially change the coding, format and clinical context of patient data. In addition, data may be omitted in some cases. CLINICAL DECISIONS SHOULD BE BASED ON THE PRIMARY CLINICAL RECORDS. [facility] [employer] provides no warranty or guarantee of the accuracy or completeness of information in this document.
== END | disposition home or self-care (01) ==
LOC: OPBI 15:34
PROVIDERS: PCP Family Medicine Geriatric Medicine; Referring Provider Family Medicine Geriatric Medicine; Visit Provider Family Medicine Geriatric Medicine
DX: Z12.31 Encounter for screening mammogram for malignant neoplasm of breast (principal)
CPT/HCPCS: 77063; 77067

== ENCOUNTER → 2023-10-30 | Outpatient (CLI) | payer OTHER, SELFPAY ==
--- NOTE | 2023-10-30 13:36 | VDLE_ITS ---
Reason For Study: Right leg swelling RIGHT LEFT GSV is normal. CFV is compressible, spontaneous, phasic, CFV is compressible, spontaneous, phasic, competent, and demonstrates normal competent and demonstrates normal augmentation. augmentation. FV is compressible, spontaneous, phasic, competent and demonstrates normal augmentation. POP V is compressible, spontaneous, phasic, competent and demonstrates normal augmentation. T/P Trunk is compressible. PTV is compressible. RT PerV is compressible. Procedure This is a venous duplex using B-mode, color flow and spectral Doppler. Exam performed in department. A preliminary report was called and/or faxed to Dr. Jay. VL/Venous Duplex US, Unilateral Interpretation Summary There is no evidence of right lower extremity deep vein thrombosis. Right great saphenous vein appears patent and compressible segmentally. Normal flow patterns left common f emoral vein Ordering Physician: Brandon Jay Chi Referring Physician: Brandon Jay Chi Performed By: Nicki Pantoja RVT and Student
== END | disposition home or self-care (01) ==
LOC: CVS 13:35
PROVIDERS: PCP Family Medicine Geriatric Medicine; Referring Provider Family Medicine Geriatric Medicine; Visit Provider Family Medicine Geriatric Medicine
DX: M79.89 Other specified soft tissue disorders (principal); R60.9 Edema, unspecified
CPT/HCPCS: 93971

== ENCOUNTER → 2024-01-08 | Outpatient (CLI) | payer OTHER, SELFPAY ==
[2024-01-08 11:08] LABS: Absolute Lymphocyte Count 1.55 X10^3/uL (0.83-4.51); Absolute Neutrophil Count 3.4 X10^3/uL (2.0-7.7); Basophil# 0.02 X10^3/uL; Basophil% 0.4 % (0-1); Eosinophil# 0.06 X10^3/uL; Eosinophils% 1.1 % (0-5); Hematocrit 42.8 % (37-47); Lymphocyte # 1.55 X10^3/ul (0.83-4.51); Lymphocyte % 28.7 % (19-41); Mean Corp Hgb Conc 32.7 g/dL (32-36); Mean Corpuscular Hgb 32.1 pg (27.0-32.0); Mean Corpuscular Volume 98.2 fL (81-99); Mean Platelet Vol. 11.3 fl (6.2-12.0); Monocyte# 0.38 X10^3/uL; NRBC Flagged by Analyzer 0 % (0-5); Neutrophil # 3.38 X10^3/uL (2.7-7.7); Neutrophil % 62.6 % (47-70); Platelet Count 153 K/mm3 (150-450); RBC Distribution Width CV 11.9 % (11.6-14.6); RBC Distribution Width SD 43.5 fl (35.1-43.9); Red Blood Count 4.36 M/mm3 (4.2-5.4); White Blood Count 5.4 K/mm3 (4.4-11.0)
== END | disposition home or self-care (01) ==
PROVIDERS: PCP Family Medicine Geriatric Medicine; Referring Provider Family Medicine Geriatric Medicine; Visit Provider Family Medicine Geriatric Medicine
DX: I10 Essential (primary) hypertension (principal)
CPT/HCPCS: 36415; 85025

== ENCOUNTER → 2024-02-13 | Outpatient (CLI) | payer OTHER, SELFPAY ==
[2024-02-13 09:01] LABS: Absolute Lymphocyte Count 1.72 X10^3/uL (0.83-4.51); Absolute Neutrophil Count 2.4 X10^3/uL (2.0-7.7); Basophil# 0.02 X10^3/uL; Basophil% 0.4 % (0-1); Eosinophil# 0.06 X10^3/uL; Eosinophils% 1.3 % (0-5); Hematocrit 42.5 % (37-47); Hemoglobin 13.9 g/dL (12.0-15.0); Lymphocyte # 1.72 X10^3/ul (0.83-4.51); Lymphocyte % 37.5 % (19-41); Mean Corp Hgb Conc 32.7 g/dL (32-36); Mean Corpuscular Hgb 32.1 pg (27.0-32.0); Mean Corpuscular Volume 98.2 fL (81-99); Mean Platelet Vol. 11.1 fl (6.2-12.0); Monocyte# 0.41 X10^3/uL; Monocyte% 8.9 % (0-10); NRBC Flagged by Analyzer 0 % (0-5); Neutrophil # 2.37 X10^3/uL (2.7-7.7); Neutrophil % 51.7 % (47-70); Platelet Count 172 K/mm3 (150-450); RBC Distribution Width CV 12.1 % (11.6-14.6); RBC Distribution Width SD 43.8 fl (35.1-43.9); Red Blood Count 4.33 M/mm3 (4.2-5.4); White Blood Count 4.6 K/mm3 (4.4-11.0)
[2024-02-13 09:44] LABS: ALB/GLOB Ratio 1.1 RATIO (0.9-2.4); AST(SGOT) 22 U/L (15-37); Alanine Aminotransfer ALT/SGPT 22 U/L (13-56); Albumin, Serum 3.7 g/dL (3.2-5.0); Alkaline Phosphatase 120 U/L (45-117); Anion Gap 8 (5-15); BUN 12 mg/dL (7-18); BUN/Creat Ratio 13.5 RATIO (10-20); Chloride 107 mmol/L (98-107); Cholesterol 155 mg/dL (200); Creatinine, Serum 0.89 mg/dL (0.55-1.02); EST Glomerular Filtration Rate 69 mL/min (>60); Est Glom Filt Rate - Afr Amer 84 mL/min (>60); Globulin 3.3 g/dL (2.2-4.2); Glucose 88 mg/dL (74-106); High Density Lipoprotein 61 mg/dL; Potassium 3.6 mmol/L (3.5-5.1); Sodium Level 143 mmol/L (136-145); Triglycerides 124 mg/dL; Very Low Density Lipoprotein 25 mg/dL (5-40)
== END | disposition home or self-care (01) ==
LOC: POLAB3 08:49
PROVIDERS: PCP Family Medicine Geriatric Medicine; Visit Provider Family Medicine Geriatric Medicine
DX: I10 Essential (primary) hypertension (principal); E78.5 Hyperlipidemia, unspecified
CPT/HCPCS: 36415; 80053; 80061; 84443; 85025

== ENCOUNTER → 2025-01-18 | Outpatient (CLI) | payer OTHER, SELFPAY ==
--- NOTE | 2025-01-18 07:43 | EKG12_ITS ---
Test Reason : PREOP Blood Pressure : */* mmHG Vent. Rate : 51 BPM Atrial Rate : 51 BPM P-R Int : 194 ms QRS Dur : 88 ms QT Int : 408 ms P-R-T Axes : 39 2 22 degrees QTcB Int : 376 ms Sinus bradycardia Otherwise normal ECG Confirmed by Vincent Bravo ([id number]), technical writer and editor MAURICIO JAEGER ([id number]) on 01/19/2025 5:42:22 AM Referred By: Shubham Floyd Confirmed By: Vincent Bravo
== END | disposition home or self-care (01) ==
PROVIDERS: PCP Family Medicine Geriatric Medicine; Referring Provider Student in an Organized Health Care Education/Training Program; Visit Provider Student in an Organized Health Care Education/Training Program
DX: Z01.818 Encounter for other preprocedural examination (principal)
CPT/HCPCS: 93005